=== PATIENT | female | born 1980 | race Caucasian/White ===

== ENCOUNTER → 2016-09-09 | Outpatient (CLI) | payer OTHER ==
[~2016-09-09] MED LIST: /LOR25TA PO; AKWASOL OD; AMBI10TA PO; AMBI5TAB PO; ASTE0.15; BACL10TA2 PO; CEFD1CAP8 PO; CELE-19 PO; CLAR10CA3 PO; DICL50TA2 PO; DULC5TAB PO; EFFEXOR PO; EXCETAB42 PO; FLUC10TA PO; HYDR-3719 PO; HYDR10TA16 PO; IMIT6KIT2 SC; MAXA5TAB10 PO; META800T82 PO; MIREIUD IU; NEUR600T PO; NICO21PAT TD; NORT25CA2 PO; OCUF0.3D OU; ORPH-8 PO; PHEN-223 PO; PHEN-239 PO; PRIL20CA9 PO; TIZA2CAP3 PO; TOBRSUS8 OS; ULTR37.539 PO; VENL37TA PO; VERA40TA PO; [UNRECOGNIZED DRUG - REMARK] PO
--- NOTE | 2016-09-09 10:44 | REP ---
CERVICAL SPINE SERIES: Two views. HISTORY: Osteoarthritis of the cervical spine. COMPARISON STUDY: February 27, 2014. FINDINGS: The patient is status post ventral discectomy and fusion at the C5-6 and C6-7 levels. The C5-6 level has been fused in the interval since the 2013 prior study. There is straightening of the normal cervical lordosis. No malalignment. There is some prevertebral soft tissue fullness. Disc spaces are preserved. No other finding. IMPRESSION: AP and lateral views show ventral discectomy and fusion at C5-6 and C6-7. Straightening. Signed by Evangelista Ahn MD 09/09/2016 01:51 P
== END | disposition home or self-care (01) ==
LOC: M RAD 09:32
PROVIDERS: ATTEND Neurological Surgery
DX: M47.812 Spondylosis without myelopathy or radiculopathy, cervical region (principal)

== ENCOUNTER 2017-02-20 22:24 | Emergency (ER) | payer OTHER ==
[~2017-02-20] VITALS: Ht 167.6 cm; Wt 83.7 kg
[~2017-02-20 22:24] MED LIST changes: -CELE-19 PO; +CELE1CAP4 PO; -EXCETAB42 PO; +EXCETAB49 PO; +OCUF0.25 OU; -OCUF0.3D OU; -PHEN-223 PO; +PHEN30CA2 PO
[2017-02-20 22:25] VITALS: BP 137/109
== END 2017-02-20 23:56 | disposition left against medical advice (07) ==
LOC: M ED 22:24
DX: J02.9 Acute pharyngitis, unspecified (principal); Z53.29 Procedure and treatment not carried out because of patient's decision for other reasons

== ENCOUNTER → 2017-08-23 | Outpatient (CLI) | payer OTHER ==
[2017-08-23 19:01] LABS: ALBUMIN 4.4 GM/DL (3.2-5.2); ALBUMIN/GLOBULIN RATIO 1.26 (1.00-1.93); ALKALINE PHOSPHATASE 54 U/L (45-117); ALT/SGPT 25 U/L (12-78); AMYLASE 33 U/L (25-115); ANION GAP 8 MEQ/L (8-16); AST/SGOT 8 U/L (7-37); BILIRUBIN,TOTAL 1.2 MG/DL (0.2-1.0); BLOOD UREA NITROGEN 13 MG/DL (7-18); CALCIUM LEVEL 9.5 MG/DL (8.5-10.1); CARBON DIOXIDE LEVEL 26 MEQ/L (21-32); CHLORIDE LEVEL 104 MEQ/L (98-107); GLOMERULAR FILTRATION RATE > 60.0 (>60); GLUCOSE, FASTING 91 MG/DL (70-105); POTASSIUM SERUM 4.6 MEQ/L (3.5-5.1); SODIUM LEVEL 138 MEQ/L (136-145); THYROID STIMULATING HORMONE 0.891 uIU/ML (0.358-3.740); TOTAL PROTEIN 7.9 GM/DL (6.4-8.2)
[2017-08-23 19:09] LABS: HEMATOCRIT 43.1 % (36.0-47.0); HEMOGLOBIN 14.4 g/dl (12.0-16.0); MEAN CORPUSCULAR HEMOGLOBIN 29.6 pg (27.0-33.0); MEAN CORPUSCULAR HGB CONC 33.4 g/dl (32.0-36.5); MEAN CORPUSCULAR VOLUME 88.7 fl (80.0-96.0); PLATELET COUNT, AUTOMATED 310 10^3/uL (150-450); RED BLOOD COUNT 4.86 10^6/uL (4.00-5.40); RED CELL DISTRIBUTION WIDTH 12.4 % (11.5-14.5); WHITE BLOOD COUNT 9.4 10^3/uL (4.0-10.0)
== END ==
LOC: M LAB 16:18
DX: R10.32 Left lower quadrant pain (principal); R19.04 Left lower quadrant abdominal swelling, mass and lump
CPT/HCPCS: 82150

== ENCOUNTER 2018-09-05 09:58 | Day surgery (SDC) | payer OTHER ==
[~2018-09-05] VITALS: Ht 170.2 cm; Wt 83.9 kg
[~2018-09-05 09:58] MED LIST changes: +ALPR0.5T3 PO; +LORA-243 PO; +MIRE1IUD IU; -MIREIUD IU; +NS 1,000 ML IV ONE; +OMEP20CA3 PO; +ONDA4TAB6 PO; +OXYB5TAB10 PO; +SPIR-10 PO; +TIZA2CAP PO; -TIZA2CAP3 PO
--- NOTE | 2018-09-05 12:07 | ROOR ---
Patient Name: Bernie Peck Procedure Date: 09/05/2018 11:42 AM Date of : 1980 Age: 37 Room: [facility] Gender: Female Note Status: Finalized Procedure: Total Colonoscopy to Cecum + Bx. To r/o Microscopic Colitis Indications: Lower abdominal pain, Rectal bleeding, Chronic idiopathic constipation Providers: Arturo Carty MD Referring MD: JAN SHORE MD Requesting Provider: Medicines: Monitored Anesthesia Care Complications: No immediate complications. Procedure: Pre-Anesthesia Assessment: - The heart rate, respiratory rate, oxygen saturations, blood pressure, adequacy of pulmonary ventilation, and response to care were monitored throughout the procedure. The Colonoscope was introduced through the anus and advanced to the cecum, identified by appendiceal orifice and ileocecal valve. The colonoscopy was performed without difficulty. The patient tolerated the procedure well. The quality of the bowel preparation was good. Findings: The perianal and digital rectal examinations were normal. Non-bleeding internal hemorrhoids were found during retroflexion. The hemorrhoids were small and Grade I (internal hemorrhoids that do not prolapse). No other significant abnormalities were identified in a careful examination of the remainder of the colon. Biopsies for histology were taken with a cold forceps from the ascending colon, transverse colon, descending colon and rectosigmoid colon for evaluation of microscopic colitis. The exam was otherwise without abnormality on direct and retroflexion views. Impression: - Non-bleeding internal hemorrhoids. - The examination was otherwise normal on direct and retroflexion views. - Biopsies were taken with a cold forceps from the ascending colon, transverse colon, descending colon and rectosigmoid colon for evaluation of microscopic colitis. - The exam was otherwise normal to the cecum. Recommendation: - Patient has a contact number available for emergencies. The signs and symptoms of potential delayed complications were discussed with the patient. Return to normal activities tomorrow. Written discharge instructions were provided to the patient. - High fiber diet. - Discharge patient to home. - Continue present medications. - Await pathology results. - Telephone GI clinic for pathology results in 1 week. - Check Portal Online for Path Results.([email or web address]) - Repeat colonoscopy at age 48 for screening purposes. - Return to referring physician. - The findings and recommendations were discussed with the patient's family. Arturo Carty MD Arturo Carty MD 09/05/2018 12:06:41 PM This report has been signed electronically. Number of Addenda: 0 Note Initiated On: 09/05/2018 11:42 AM Estimated Blood Loss: Estimated blood loss: none.
[2018-09-05] MEDS ORDERED: LIDOCAINE 2% INJ 100 MG/5 ML SDV (FOR ANES.) As Ordered ONE (12:19)
[2018-09-05] MEDS ORDERED: PROPOFOL 500 MG/50 ML VIAL As Ordered ONE (12:19)
[2018-09-05 12:24] VITALS: BP 130/93
== END 2018-09-05 12:25 | disposition home or self-care (01) ==
LOC: M OPP 09:58
PROVIDERS: ATTEND Internal Medicine Gastroenterology
DX: R10.30 Lower abdominal pain, unspecified (principal); K62.5 Hemorrhage of anus and rectum; K59.04 Chronic idiopathic constipation; K58.1 Irritable bowel syndrome with constipation; D12.6 Benign neoplasm of colon, unspecified; K64.0 First degree hemorrhoids; R12 Heartburn; F17.290 Nicotine dependence, other tobacco product, uncomplicated; Z79.899 Other long term (current) drug therapy; Z88.5 Allergy status to narcotic agent

== ENCOUNTER → 2018-10-22 | Outpatient (CLI) | payer OTHER ==
[~2018-10-22] MED LIST changes: -NS 1,000 ML IV ONE
[2018-10-22 11:16] LABS: THYROID STIMULATING HORMONE 0.958 uIU/ML (0.358-3.740); THYROXINE (T4) 12.1 UG/DL (4.5-12.0)
[2018-10-22 11:17] LABS: TOTAL T3 108.4 NG/DL (60.0-181.0)
[2018-10-24 00:07] LABS: SSA SJOGRENS A <0.2 AI (0.0-0.9); SSB SJOGRENS B <0.2 AI (0.0-0.9)
== END ==
LOC: M LAB 09:50
PROVIDERS: ATTEND Ophthalmology
DX: Z13.29 Encounter for screening for other suspected endocrine disorder (principal)

== ENCOUNTER → 2018-10-23 | Outpatient (CLI) | payer OTHER ==
[2018-10-23 12:22] LABS: BASO # 0.1 10^3/uL (0.0-0.2); BASO % 0.8 % (0.0-1.0); EOS # 0.3 10^3/uL (0.0-0.50); EOS % 2.5 % (0.0-3.0); HEMATOCRIT 45.4 % (36.0-47.0); HEMOGLOBIN 14.9 g/dl (12.0-15.5); LYMPH # 2.8 10^3/uL (1.5-4.5); LYMPH % 27.4 % (24.0-44.0); MEAN CORPUSCULAR HEMOGLOBIN 29.3 pg (27.0-33.0); MEAN CORPUSCULAR HGB CONC 32.8 g/dl (32.0-36.5); MEAN CORPUSCULAR VOLUME 89.4 fl (80.0-96.0); MONO # 0.7 10^3/uL (0.0-0.8); MONO % 6.9 % (0.0-5.0); NEUTROPHILS # 6.4 10^3/uL (1.8-7.7); PLATELET COUNT, AUTOMATED 280 10^3/uL (150-450); RED BLOOD COUNT 5.08 10^6/uL (4.00-5.40); WHITE BLOOD COUNT 10.3 10^3/uL (4.0-10.0)
[2018-10-23 12:33] LABS: ALBUMIN 4.3 GM/DL (3.2-5.2); ALT/SGPT 19 U/L (12-78); BILIRUBIN,TOTAL 1.1 MG/DL (0.2-1.0); BLOOD UREA NITROGEN 12 MG/DL (7-18); CALCIUM LEVEL 9.6 MG/DL (8.5-10.1); CARBON DIOXIDE LEVEL 30 MEQ/L (21-32); CHLORIDE LEVEL 101 MEQ/L (98-107); CREATININE FOR GFR 0.88 MG/DL (0.55-1.30); GLOMERULAR FILTRATION RATE > 60.0 (>60); GLUCOSE, FASTING 109 MG/DL (70-100); POTASSIUM SERUM 4.6 MEQ/L (3.5-5.1); SODIUM LEVEL 138 MEQ/L (136-145); TOTAL PROTEIN 7.2 GM/DL (6.4-8.2)
[2018-10-23 12:59] LABS: ERYTHROCYTE SEDIMENTATION RATE 1 mm/hr (0-20)
== END ==
LOC: M WUC 10:55
PROVIDERS: ATTEND Physician Assistant
DX: R42 Dizziness and giddiness (principal)

== ENCOUNTER → 2018-10-26 | Outpatient (CLI) | payer OTHER ==
[2018-10-26 11:41] LABS: HEMATOCRIT 43.3 % (36.0-47.0); HEMOGLOBIN 14.4 g/dl (12.0-15.5); MEAN CORPUSCULAR HEMOGLOBIN 29.7 pg (27.0-33.0); MEAN CORPUSCULAR HGB CONC 33.3 g/dl (32.0-36.5); MEAN CORPUSCULAR VOLUME 89.3 fl (80.0-96.0); PLATELET COUNT, AUTOMATED 264 10^3/uL (150-450); RED BLOOD COUNT 4.85 10^6/uL (4.00-5.40); WHITE BLOOD COUNT 7.9 10^3/uL (4.0-10.0)
[2018-10-26 12:03] LABS: HEMOGLOBIN A1c 5.2 %
[2018-10-26 12:15] LABS: ALBUMIN 4.2 GM/DL (3.2-5.2); ALT/SGPT 19 U/L (12-78); BLOOD UREA NITROGEN 10 MG/DL (7-18); CARBON DIOXIDE LEVEL 29 MEQ/L (21-32); CHLORIDE LEVEL 104 MEQ/L (98-107); CHOLESTEROL LEVEL 190 MG/DL (<200); CREATININE FOR GFR 0.78 MG/DL (0.55-1.30); GLOMERULAR FILTRATION RATE > 60.0 (>60); GLUCOSE, FASTING 95 MG/DL (70-100); HDL CHOLESTEROL 46 MG/DL (>40); LDL CHOLESTEROL 111 MG/DL (<100); NON-HDL-C 144 MG/DL; POTASSIUM SERUM 4.4 MEQ/L (3.5-5.1); SODIUM LEVEL 138 MEQ/L (136-145); THYROID STIMULATING HORMONE 0.934 uIU/ML (0.358-3.740); THYROXINE (T4) 11.6 UG/DL (4.5-12.0); TOTAL PROTEIN 7.1 GM/DL (6.4-8.2); TRIGLYCERIDES LEVEL 166 MG/DL (<150)
[2018-10-26 12:16] LABS: THYROID PEROXIDASE ANTIBODY < 28.0 U/ML (<60.0); TOTAL 25(OH) VITAMIN D 36.1 NG/ML (30.0-100.0)
[2018-10-26 12:17] LABS: TOTAL T3 114.5 NG/DL (60.0-181.0)
== END ==
LOC: M LAB 10:46
PROVIDERS: ATTEND Family Medicine
DX: E03.9 Hypothyroidism, unspecified (principal); R53.83 Other fatigue

== ENCOUNTER → 2018-12-20 | Outpatient (CLI) | payer OTHER ==
[~2018-12-20] MED LIST changes: +DOXY-350 PO; +FLON1SPR; +IBUP1TAB7 PO; +NICO21DI3 TD; -NICO21PAT TD; -ORPH-8 PO; +ORPH100T2 PO
[2018-12-20 10:41] LABS: HEMATOCRIT 40.9 % (36.0-47.0); MEAN CORPUSCULAR HEMOGLOBIN 30.2 pg (27.0-33.0); MEAN CORPUSCULAR HGB CONC 34.2 g/dl (32.0-36.5); MEAN CORPUSCULAR VOLUME 88.1 fl (80.0-96.0); PLATELET COUNT, AUTOMATED 265 10^3/uL (150-450); RED BLOOD COUNT 4.64 10^6/uL (4.00-5.40); WHITE BLOOD COUNT 7.8 10^3/uL (4.0-10.0)
[2018-12-20 11:04] LABS: INR 0.96; PROTHROMBIN TIME 12.9 SECONDS (12.1-14.4)
[2018-12-20 11:07] LABS: ERYTHROCYTE SEDIMENTATION RATE 2 mm/hr (0-20)
[2018-12-20 11:19] LABS: ALBUMIN 4.2 GM/DL (3.2-5.2); ALT/SGPT 22 U/L (12-78); BILIRUBIN,TOTAL 1.2 MG/DL (0.2-1.0); BLOOD UREA NITROGEN 13 MG/DL (7-18); CALCIUM LEVEL 8.8 MG/DL (8.5-10.1); CARBON DIOXIDE LEVEL 27 MEQ/L (21-32); CHLORIDE LEVEL 105 MEQ/L (98-107); CHOLESTEROL LEVEL 203 MG/DL (<200); CHOLESTEROL RISK RATIO 3.759 (<5); GLOMERULAR FILTRATION RATE > 60.0 (>58); GLUCOSE, FASTING 104 MG/DL (70-100); HDL CHOLESTEROL 54 MG/DL (>40); LDL CHOLESTEROL 136 MG/DL (<100); NON-HDL-C 149 MG/DL; POTASSIUM SERUM 3.8 MEQ/L (3.5-5.1); RHEUMATOID FACTOR QUANT < 10.0 IU/ML (<15.0); SODIUM LEVEL 139 MEQ/L (136-145); THYROID STIMULATING HORMONE 0.475 uIU/ML (0.358-3.740); TOTAL PROTEIN 6.9 GM/DL (6.4-8.2); TRIGLYCERIDES LEVEL 63 MG/DL (<150)
[2018-12-20 13:13] LABS: HEMOGLOBIN A1c 5.3 %
--- NOTE | 2018-12-20 17:03 | REP ---
Chest x-ray: Two views. History: Hypertension. Fatigue. Comparison study: October 17, 2014. Findings: The patient is status post lower cervical discectomy and fusion. There is a granulomatous calcification in the right upper lobe. The lungs are otherwise well inflated and clear. The pleural angles are sharp. Heart size is normal. Pulmonary vasculature is not increased. There are clips in right upper quadrant post cholecystectomy. No bony abnormality is seen. Impression: No active disease. Electronically Signed by Evangelista Ahn MD 12/21/2018 07:59 A
[2018-12-21 14:13] LABS: ANTINUCLEAR ANTIBODIES DIRECT Negative (Negative)
--- NOTE | 2018-12-21 23:50 | ECGEPIP ---
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
== END ==
LOC: M LAB 10:07
PROVIDERS: ATTEND Family Medicine
DX: Z01.818 Encounter for other preprocedural examination (principal); R53.83 Other fatigue; I10 Essential (primary) hypertension; E03.9 Hypothyroidism, unspecified; M06.9 Rheumatoid arthritis, unspecified

== ENCOUNTER 2018-12-31 07:05 | Day surgery (SDC) | payer OTHER ==
[~2018-12-31] VITALS: Ht 170.2 cm; Wt 82.1 kg
[~2018-12-31 07:05] MED LIST changes: +CIPROFLOXACIN 0.3% OPHTH OINTMENT As Ordered ONE; +LIDOCAINE 2% W/EPIN INJ 20ML **PRES FREE As Ordered ONE; +LIDOCAINE 3.5 % 1ML OPHTH TOPICAL GEL OU ONE; -OMEP20CA3 PO; +OMEP20CA4 PO; +POVIDONE-IODINE 5% OPHTH PREP SOL 30ML As Ordered ONE; +SODIUM BICARBONATE 8.4% INJ 50MEQ 50 ML VIAL As Ordered ONE; +TETRACAINE 0.5% OPHTH SOLN 4ML As Ordered ONE
[2018-12-31] MEDS ORDERED: MIDAZOLAM INJ 2 MG/2 ML VIAL (J2250) As Ordered ONE ×3 (07:09→09:24)
[2018-12-31 07:41] LABS: URINE PREG TEST NEGATIVE (NEGATIVE)
[2018-12-31] MEDS ORDERED: fentaNYL 100 MCG/2 ML INJECTION (J3010) As Ordered ONE (08:14)
[2018-12-31] MEDS ORDERED: TETRACAINE 0.5% OPHTH SOLN 4ML As Ordered ONE (09:46)
[2018-12-31] MEDS ORDERED: PERCOCET 5MG/325MG TAB As Ordered ONE (10:33)
--- NOTE | 2018-12-31 10:35 | RO ---
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 PROCEDURE: Blepharoplasty along with levator aponeurosis reattachment and the re-positing of the lacrimal gland prolapse. SURGEON: Dr. Edwin Cain. DEVELOPMENT SCIENTIST: None. ANESTHESIA: DESCRIPTION OF PROCEDURE: The patient was brought to the operating room and laid in supine position. The operative face was prepped and draped in a sterile fashion for ophthalmic lid surgery. First both upper lids were marked with a sterile marker along the line of proposed lid skin incisions. Both upper lids were then infiltrated with 2% lidocaine with 1:100,000 epinephrine. Attention was first diverted to the right upper lid where electrocautery was used to excise the premarked skin. Hemostasis was obtained as necessary. The lever dissection was carried to isolate the medial and lateral fat pads, which were then cauterized at the base and removed. Levator aponeurosis were the re-attached using #6-0 nylon sutures. There was extensive dehiscence noted. Following this, deeper #6-0 nylon suture was placed in a running fashion followed by closure of the skin with #6-0 nylon sutures. Attention was then diverted to the left eye. Exactly the same procedure was repeated except for one difference. There was prolapse of the orbital portion of the lacrimal gland was noted. This was repaired by re-positing the lacrimal gland posteriorly and using #6-0 nylon sutures, to repair the septum prior to closure of the skin with #6-0 nylon sutures. At the end of the case, Ciloxan ointment was applied. Ice packs were applied and the patient was returned to the recovery room with extensive postoperative instructions.
[2018-12-31] MEDS ORDERED: ONDANSETRON 4MG/2ML VIAL (J2405) IV PRN (10:45)
[2018-12-31] MEDS ORDERED: PERCOCET 5MG/325MG TAB PO PRN (10:45)
[2018-12-31 11:00] VITALS: BP 125/85
== END 2018-12-31 11:08 | disposition home or self-care (01) ==
LOC: M SDC 07:05
PROVIDERS: ATTEND Ophthalmology
DX: H02.403 Unspecified ptosis of bilateral eyelids (principal); H04.1 Other disorders of lacrimal gland; H02.831 Dermatochalasis of right upper eyelid; H02.834 Dermatochalasis of left upper eyelid; K58.9 Irritable bowel syndrome, unspecified; K21.9 Gastro-esophageal reflux disease without esophagitis; M12.9 Arthropathy, unspecified; M54.2 Cervicalgia; F41.9 Anxiety disorder, unspecified; F32.9 Major depressive disorder, single episode, unspecified; R51 Headache; Z88.5 Allergy status to narcotic agent; Z79.899 Other long term (current) drug therapy
CPT/HCPCS: 15823; 68899; 84703; 88302; J2250; J3010

== ENCOUNTER 2019-05-01 07:58 | Emergency (ER) | payer OTHER, SELFPAY ==
[~2019-05-01] VITALS: Ht 170.2 cm; Wt 81.8 kg
[~2019-05-01 07:58] MED LIST changes: -CIPROFLOXACIN 0.3% OPHTH OINTMENT As Ordered ONE; -LIDOCAINE 2% W/EPIN INJ 20ML **PRES FREE As Ordered ONE; -LIDOCAINE 3.5 % 1ML OPHTH TOPICAL GEL OU ONE; -POVIDONE-IODINE 5% OPHTH PREP SOL 30ML As Ordered ONE; -SODIUM BICARBONATE 8.4% INJ 50MEQ 50 ML VIAL As Ordered ONE; -TETRACAINE 0.5% OPHTH SOLN 4ML As Ordered ONE
[2019-05-01] MEDS ORDERED: MIRE1IUD IU (08:07)
[2019-05-01 09:02] VITALS: BP 135/105
== END 2019-05-01 09:31 | disposition left against medical advice (07) ==
LOC: M ED 07:58
DX: Z53.21 Procedure and treatment not carried out due to patient leaving prior to being seen by health care provider (principal)

== ENCOUNTER → 2019-05-07 | Outpatient (CLI) | payer OTHER ==
[~2019-05-07] MED LIST changes: +ASPI81TA85 PO; +METO25TA4 PO; +PANT40TA3 PO
--- NOTE | 2019-05-08 08:30 | REP ---
MRI brain without contrast: History: Headaches and double vision. Comparison head CT study November 17, 2015. Technique: Axial and sagittal imaging planes are utilized for T1 and T2-weighted scans. Sequences include spin-echo, fast spin echo, FLAIR, and diffusion weighted sequences. Findings: The bony calvarium is intact. There is moderate mucosal thickening affecting the left maxillary sinus. The visualized paranasal sinuses are otherwise clear. No intraorbital abnormality is seen. Craniocervical junction and upper cervical cord are normal in appearance. The deep facial and skull base soft tissues are unremarkable. Lateral, third, and fourth ventricles are normal in size and position. Gomez-white differentiation pattern is intact. There are two or three subcortical T2 hyperintensities in the frontal lobes and temporal parietal lobes consistent with minimal small vessel changes. No significant white matter lesion is appreciated. There is no evidence of intracranial hemorrhage. Diffusion weighted scans show no evidence of restricted diffusion. There is no evidence of extra-axial fluid collection, mass, infarct or midline shift. No vascular lesion is appreciated. Impression: Left maxillary paranasal sinus mucosal thickening. No acute intracranial lesion. Electronically Signed by Evangelista Ahn MD 05/08/2019 11:12 A
== END ==
LOC: M RAD 17:58
PROVIDERS: ATTEND Family Medicine
DX: R51 Headache (principal); H53.2 Diplopia; J32.0 Chronic maxillary sinusitis

== ENCOUNTER 2019-05-08 11:58 | Emergency (ER) | payer OTHER ==
[~2019-05-08] VITALS: Ht 170.2 cm; Wt 81.6 kg
[~2019-05-08 11:58] MED LIST changes: -ASPI81TA85 PO; -METO25TA4 PO; +OMEP1CAP73 PO; -OMEP20CA4 PO; -PANT40TA3 PO
[2019-05-08] MEDS ORDERED: METO25TA4 PO (12:12)
[2019-05-08] MEDS ORDERED: PANT40TA3 PO (12:12)
[2019-05-08 12:39] LABS: BASO # 0.1 10^3/uL (0.0-0.2); BASO % 0.7 % (0.0-1.0); EOS # 0.2 10^3/uL (0.0-0.5); EOS % 1.7 % (0.0-3.0); HEMATOCRIT 39.7 % (36.0-47.0); HEMOGLOBIN 13.5 g/dl (12.0-15.5); LYMPH # 3.1 10^3/uL (1.5-5.0); LYMPH % 33.5 % (24.0-44.0); MEAN CORPUSCULAR HEMOGLOBIN 30.6 pg (27.0-33.0); MONO # 0.5 10^3/uL (0.0-0.8); MONO % 5.2 % (0.0-5.0); NEUTROPHILS # 5.5 10^3/uL (1.5-8.5); NEUTROPHILS % 58.6 % (36.0-66.0); PLATELET COUNT, AUTOMATED 255 10^3/uL (150-450); RED BLOOD COUNT 4.41 10^6/uL (4.00-5.40); WHITE BLOOD COUNT 9.4 10^3/uL (4.0-10.0)
--- NOTE | 2019-05-08 12:43 | REP ---
Portable chest, 12:18 p.m., with the the patient upright: Comparison are the PA and lateral views of the chest chest dated 12/20/2018 and 07/25/2014 . There is a small stable right upper lobe 6 ml lung nodule, unchanged from both prior studies, likely a granuloma. Lung light otherwise clear. Cardiac size is normal. The dre, mediastinum, skeletal structures are unremarkable. Impression: Essentially negative portable chest. There is a small stable granuloma in the right upper lobe. Electronically Signed by George Lamb MD 05/08/2019 12:34 P
[2019-05-08] MEDS ORDERED: METOPROLOL TART 25 MG TABLET PO ONE (12:45)
[2019-05-08 12:48] VITALS: BP 167/99
[2019-05-08 12:49] LABS: INR 1.01
[2019-05-08 13:08] LABS: ALBUMIN 4.1 GM/DL (3.2-5.2); ALT/SGPT 18 U/L (12-78); BILIRUBIN,DIRECT 0.2 MG/DL (0.0-0.2); BILIRUBIN,TOTAL 0.9 MG/DL (0.2-1.0); CK-MB VALUE MASS < 1.0 NG/ML (<3.6); CPK CREATINE PHOSPHOKINASE 97 U/L (26-192); LIPASE 81 U/L (73-393); MB/CK RELATIVE INDEX 1.03 (< OR =4); TOTAL PROTEIN 6.9 GM/DL (6.4-8.2); TROPONIN I < 0.02 NG/ML (< 0.10)
[2019-05-08] MEDS ORDERED: ASPI81TA85 PO (14:04)
[2019-05-08 14:15] VITALS: BP 130/86
--- NOTE | 2019-05-08 20:46 | ECGEPIP ---
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
== END 2019-05-08 14:40 | disposition home or self-care (01) ==
LOC: M ED 11:58
DX: I49.3 Ventricular premature depolarization (principal); R00.2 Palpitations; R00.8 Other abnormalities of heart beat; R06.02 Shortness of breath; F41.9 Anxiety disorder, unspecified; Z88.5 Allergy status to narcotic agent; Z79.899 Other long term (current) drug therapy; Z79.1 Long term (current) use of non-steroidal anti-inflammatories (NSAID); Z97.5 Presence of (intrauterine) contraceptive device